=== PATIENT | male | born 1965 | race Caucasian/White ===

== ENCOUNTER 2022-09-12 10:01 | Inpatient (IN) | payer OTHER ==
[~2022-09-12] VITALS: Ht 177.8 cm; Wt 75.3 kg
[2022-09-12] MEDS ORDERED: ZOLPIDEM TARTRATE 10 MG TABLET PO PRN ×2 (13:00→15:30)
[2022-09-12] MEDS ORDERED: ACETAMINOPHEN ES 500 MG TABLET PO PRN (15:30)
[2022-09-12] MEDS ORDERED: LORAZEPAM 1 MG TABLET FOR AGITATION PO PRN (15:30)
[2022-09-12] MEDS ORDERED: IBUPROFEN 200 MG TABLET PO PRN (15:30)
[2022-09-12] MEDS ORDERED: MAGNESIUM HYDROXIDE 30 ML UDC PO PRN (15:30)
[2022-09-12] MEDS ORDERED: MAG HYDROX/AL HYDROX/SIMETH 30 ML UDC PO PRN (15:30)
[2022-09-12 16:00] VITALS: BP 124/76
--- NOTE | 2022-09-12 16:09 | NUR ---
CT/MS ORTHOTIC AIDE NOTES PATIENT IS 57 Y/O MALE ADMITTED TO UNIT @ 1415 FOR CLINICAL TRIAL WITH DIAGNOSIS OF SCHIZOPHRENIA . A/O X4. ABLE TO VERBALIZED NEEDS, DENIES PAIN AND ANY DISCOMFORTS. AMBULATORY WITH STEADY GAIT. ON ROOM AIR, TOLERATING WELL, BREATHING EVEN AND UNLABORED. V/S TAKEN, STABLE AND RECORDED. REFUSED BODY ASSESSMENT AT THIS TIME, VERBALIZED THAT HE'S VERY SLEEPY BUT HE SAID HE DOESN'T HAVE ANY SKIN BREAKDOWN. MRSA SWAB OF RIGHT NARE DONE, SENT TO LAB. SAFETY MEASURES IMPLEMENTED: BED PLACED IN LOWEST LOCKED POSITION, SR-UP X2. CALL LIGHT WITHIN REACH. WILL CONTINUE WITH PLAN OF CARE.
--- NOTE | 2022-09-12 18:45 | NUR ---
CT/MS RN CLOSING NOTES PATIENT IS IN BED, A/O X4. ABLE TO VERBALIZED NEEDS, DENIES PAIN AND ANY DISCOMFORTS, AMBULATORY WITH STEADY GAIT, ON ROOM AIR, TOLERATING WELL, BREATHING EVEN AND UNLABORED, V/S TAKEN, STABLE AND RECORDED. REFUSED BODY ASSESSMENT AT THIS TIME, VERBALIZED THAT HE'S VERY SLEEPY BUT HE SAID HE DOESN'T HAVE ANY SKIN BREAKDOWN, MRSA SWAB OF RIGHT NARES DONE, SENT TO LAB, SAFETY MEASURES IN PLACE AND MAINTAINED AT ALL TIMES, BED PLACED IN LOWEST LOCKED POSITION, SR-UP X2. CALL LIGHT WITHIN REACH. WILL CONTINUE WITH PLAN OF CARE, ALL NEEDS ATTENDED AND ANTICIPATED, WILL ENDORSE TO LOCK PLATER NURSE.
--- NOTE | 2022-09-12 19:40 | NUR ---
MSRN ASLEEP, ON STREET CLOTHES. V/S TAKEN STABLE. DINNER STILL AT BEDSIDE. RECEIVED CALL FROM BROTHER CHANDA, WILL INFORM PATIENT ONCE AWAKE TO CALL BACK. CLOSELY WATCHED.
[2022-09-12 20:00] VITALS: BP 127/70
[2022-09-12] MEDS: RISPERDONE PO SCH (22:00)
--- NOTE | 2022-09-12 22:32 | NUR ---
PETRA AWAKE AT THIS TIME, EATING LATE DINNER. PLAN OF CARE AND MEDICATION REGIMEN DISCUSSED WITH PATIENT, APPEARS TO UNDERSTAND. PERSONAL BELONGINGS TO BE CHECK AFTER HE EATS. ASKED REGARDING HIS OWN RISPERIDONE STATED HE HAVE IT AND WILL TAKE LATER. EXPLAINED NEED TO BRING BOTTLE TO PHARMACY STATED WILL TAKE OWN MED AFTER DINNER. EXPLAINED NOT ALLOWED TO KEEP OWN MED AT BEDSIDE REPLIED"AFTER DINNER". Addendum: 09/12/22 at 1276 by JOSEPHINE BORJA RN ABOVE DOCUMENTATION TIME SHOULD BE 2044.
--- NOTE | 2022-09-13 06:51 | NUR ---
MSRN NO NEEDS MADE. WENT BACK TO SLEEP
--- NOTE | 2022-09-13 07:25 | NUR ---
CT/MS CULTURE MANAGER NOTES RECEIVED PATIENT SLEEPING IN BED, A/OX4, PATIENT IS ON CLINICAL TRIAL WITH DIAGNOSIS OF SCHIZOPHRENIA, DENIES PAIN AND ANY DISCOMFORTS. AMBULATORY WITH STEADY GAIT. ON ROOM AIR, TOLERATING WELL, BREATHING EVEN AND UNLABORED. V/S STABLE AND RECORDED, NO SKIN BREAKDOWN NOTED.,SAFETY MEASURES IMPLEMENTED, BED PLACED IN LOWEST LOCKED POSITION, SR-UP X2. CALL LIGHT WITHIN REACH. WILL CONTINUE TO MONITOR PATIENT. Addendum: 09/13/22 at 1327 by ROCK DIANA NIETO RN ERROR
--- NOTE | 2022-09-13 09:48 | NUR ---
CT/MS RN OPENING NOTES RECEIVED PATIENT SLEEPING IN BED, A/OX4, PATIENT IS ON CLINICAL TRIAL WITH DIAGNOSIS OF SCHIZOPHRENIA, DENIES PAIN AND ANY DISCOMFORTS. AMBULATORY WITH STEADY GAIT. ON ROOM AIR, TOLERATING WELL, BREATHING EVEN AND UNLABORED. V/S STABLE AND RECORDED, NO SKIN BREAKDOWN NOTED.,SAFETY MEASURES IMPLEMENTED, BED PLACED IN LOWEST LOCKED POSITION, SR-UP X2. CALL LIGHT WITHIN REACH. WILL CONTINUE TO MONITOR PATIENT.
[2022-09-13] MEDS ORDERED: RISP0.2515 PO (11:26)
[2022-09-13] MEDS ORDERED: DIPH50CA38 PO (11:26)
[2022-09-13 16:00] VITALS: BP 100/76
--- NOTE | 2022-09-13 18:41 | NUR ---
CT/MS RN CLOSING NOTES PATIENT SLEEPING IN BED, A/OX4, PATIENT IS ON CLINICAL TRIAL WITH DIAGNOSIS OF SCHIZOPHRENIA, DENIES PAIN AND ANY DISCOMFORTS. AMBULATORY WITH STEADY GAIT. ON ROOM AIR, TOLERATING WELL, BREATHING EVEN AND UNLABORED. V/S STABLE AND RECORDED, NO SKIN BREAKDOWN NOTED.,SAFETY MEASURES IMPLEMENTED AND MAINTAINED AT ALL TIMES, BED PLACED IN LOWEST LOCKED POSITION, SR-UP X2. CALL LIGHT WITHIN REACH. ALL NEEDS ATTENDED AND ANTICIPATED, WILL ENDORSE TO BENEFITS SPECIALIST NURSE.
--- NOTE | 2022-09-13 19:50 | NUR ---
MS RN OPENING NOTE RECEIVED PATIENT SLEEPING IN BED. PT A/O X4, ABLE TO VERBALIZE NEEDS. PATIENT DENIES PAIN AND DISCOMFORT. AMBULATORY WITH STEADY GAIT. ON ROOM AIR, TOLERATING WELL, BREATHING EVEN AND UNLABORED. PT ON CLINICAL TRIAL. SAFETY MEASURES IMPLEMENTED, BED PLACED IN LOWEST LOCKED POSITION, SR-UP X2. CALL LIGHT WITHIN REACH. WILL CONTINUE TO MONITOR PATIENT.
[2022-09-13 20:00] VITALS: BP 118/80
[2022-09-13] MEDS: RISPERDONE PO SCH (21:39)
--- NOTE | 2022-09-14 06:40 | NUR ---
MS RN CLOSING NOTE LEFT PATIENT SLEEPING IN BED. PT A/O X4, ABLE TO VERBALIZE NEEDS. PATIENT DENIES PAIN AND DISCOMFORT. AMBULATORY WITH STEADY GAIT. ON ROOM AIR, TOLERATING WELL, BREATHING EVEN AND UNLABORED. PT ON CLINICAL TRIAL. SAFETY MEASURES IMPLEMENTED, BED PLACED IN LOWEST LOCKED POSITION, SR-UP X2. CALL LIGHT WITHIN REACH. WILL ENDORSE PATIENT TO AM SHIFT NURSE FOR MISBAH.
--- NOTE | 2022-09-14 07:10 | NUR ---
MS RN OPENING NOTES PATIENT ASLEEP IN BED BUT EASILY AROUSABLE, A/OX4, PATIENT IS ON CLINICAL TRIAL WITH DIAGNOSIS OF SCHIZOPHRENIA, DENIES PAIN AND ANY DISCOMFORTS. AMBULATORY WITH STEADY GAIT. ON ROOM AIR, TOLERATING WELL, BREATHING EVEN AND UNLABORED. ENDORSED PATIENT ON NPO SINCE 09/13/22 AT 2200. V/S STABLE AND RECORDED, NO SKIN BREAKDOWN NOTED.,SAFETY MEASURES IMPLEMENTED, BED PLACED IN LOWEST LOCKED POSITION, SR-UP X2. CALL LIGHT WITHIN REACH. WILL CONTINUE TO MONITOR PATIENT.
[2022-09-14 08:00] VITALS: BP 139/93
--- NOTE | 2022-09-14 18:45 | NUR ---
MS RN CLOSING NOTES PATIENT WENT OUT TO SHOP IN STABLE CONDITION, NO PARANOIA, NO DELUSIONS NOTED. VITAL SIGNS WITHIN NORMAL VALUES. WILL CONTINUE TO MONITOR AND WILL ENDORSE TO PM SHIFT ACCORDINGLY.
[2022-09-14 20:00] VITALS: BP 120/90
--- NOTE | 2022-09-14 21:00 | NUR ---
MS RN OPENING NOTE PATIENT IS BACK TO UNIT NOW. RECEIVED PATIENT SITTING IN BED, EATING DINNER. PT A/O X4, ABLE TO VERBALIZE NEEDS. PATIENT DENIES PAIN AND DISCOMFORT. AMBULATORY WITH STEADY GAIT. ON ROOM AIR, TOLERATING WELL, BREATHING EVEN AND UNLABORED. PT ON CLINICAL TRIAL. SAFETY MEASURES IMPLEMENTED, BED PLACED IN LOWEST LOCKED POSITION, SR-UP X2. CALL LIGHT WITHIN REACH. WILL CONTINUE TO MONITOR PATIENT.
--- NOTE | 2022-09-15 06:30 | NUR ---
MS RN CLOSING NOTE LEFT PATIENT SLEEPING IN BED. PT A/O X4, ABLE TO VERBALIZE NEEDS. PATIENT DENIES PAIN AND DISCOMFORT. AMBULATORY WITH STEADY GAIT. ON ROOM AIR, TOLERATING WELL, BREATHING EVEN AND UNLABORED. PT ON CLINICAL TRIAL. SAFETY MEASURES IMPLEMENTED, BED PLACED IN LOWEST LOCKED POSITION, SR-UP X2. CALL LIGHT WITHIN REACH. WILL ENDORSE PATIENT TO INCOMING SHIFT NURSE FOR CONTINUITY OF CARE.
--- NOTE | 2022-09-15 07:22 | NUR ---
MS RN OPENING NOTES RECEIVED PATIENT RESTING IN BED, A/OX4, PATIENT IS ON CLINICAL TRIAL WITH DIAGNOSIS OF SCHIZOPHRENIA, PATIENT VERBALIZED HE SLEPT GOOD LAST NIGHT. DENIES PAIN AND ANY DISCOMFORTS. AMBULATORY WITH STEADY GAIT. ON ROOM AIR, TOLERATING WELL, BREATHING EVEN AND UNLABORED BREATHING.SAFETY MEASURES IMPLEMENTED, BED PLACED IN LOWEST LOCKED POSITION, SR-UP X2. CALL LIGHT WITHIN REACH. WILL CONTINUE TO MONITOR PATIENT.
[2022-09-15 08:00] VITALS: BP 136/74
--- NOTE | 2022-09-15 18:23 | NUR ---
MS RN NOTE NOTED PATIENT STILL OUT OF THE ROOM, CALL PATIENT ON HIS PHONE AND HE SAID HE JUST WENT ON HIS APPOINTMENT AND IS ON HIS WAY BACK. WILL WAIT FOR PATIENT'S RETURN. PATIENT SAID HE IS WAITING FOR HIS RIDE BACK FROM APPOINTMENT.
[2022-09-15 20:00] VITALS: BP 128/76
--- NOTE | 2022-09-16 06:35 | NUR ---
RN CT CLOSING NOTES PATIENT IS IN BED RESTING, A/OX4, PATIENT IS ON CLINICAL TRIAL WITH DIAGNOSIS OF SCHIZOPHRENIA, PATIENT VERBALIZED HE SLEPT GOOD LAST NIGHT. DENIES PAIN AND ANY DISCOMFORTS. AMBULATORY WITH STEADY GAIT. ON ROOM AIR, TOLERATING WELL, BREATHING EVEN AND UNLABORED BREATHING.SAFETY MEASURES IMPLEMENTED, BED PLACED IN LOWEST LOCKED POSITION, SR-UP X2. CALL LIGHT WITHIN REACH. WILL ENDORSED TO NEXT SHIFT FOR MISBAH.
--- NOTE | 2022-09-16 07:00 | NUR ---
MS RN OPENING NOTES: RECEIVED PT IN BED, AWAKE ALERT AND ORIENTED X 4 AND ABLE TO MAKE NEEDS KNOWN. NO SOB OR CARDIAC DISTRESS NOTED, DENIES PAIN AT THIS TIME. NO IV ACCESS. NO UNUSUAL BEHAVIORAL CHANGES HAPPENED IN PREVIOUS SHIFT. SAFETY MEASURES MAINTAINED: BED LOCKED AND IN LOWEST POSITION SIDE RAILS UP X 2. CALL LIGHT IN EASY REACH AND WILL MONITOR PT ACCORDINGLY.
[2022-09-16 07:30] VITALS: BP 139/102
--- NOTE | 2022-09-16 09:46 | NUR ---
RN NOTES: RECEIEVED A CALL FROM DR GUEVARA, PATIENT WILL BE DISCHARGE TODAY, PER DR GUEVARA PT HAS UNCONTROLLED BLOOD SUGAR. NO HOME MEDS FROM DR GUEVARA, JUST FOLLOW UP WITH HIS PCP AND PERSONAL/PRIVATE PSYCHIATRIST. ALL ORDERS NOTED AND CARRIED OUT. CHARGE NURSE MITUL AND PATIENT MADE AWARE.
--- NOTE | 2022-09-16 10:00 | NUR ---
DISCHARGE NOTES: PATIENT DC HOME TODAY. ALERT AND ORIENTED X 4 AND ABLE TO MAKE NEEDS KNOWN, NO SOB OR CARDIAC DISTRESS NOTED. DISCHARGE PACKET AND INSTRUCTIONS GIVEN TO PATIENT AND VERBALIZED UNDERSTANDING. ALL BELONGINGS TAKEN WITH THE PT AND HE SIGNED. REMOVED IDENTIFICATION BAND. PT AMBULATORY AND STATED HIS FRIEND IS DOWNSTAIRS ALREADY. PT LEFT THE UNIT STABLE.
[2022-09-20] MEDS ORDERED: ZOLPIDEM TARTRATE 10 MG TABLET PO PRN (13:00)
[2022-09-20] MEDS ORDERED: LORAZEPAM 1 MG TABLET FOR AGITATION PO PRN (13:00)
[2022-09-27] MEDS ORDERED: ZOLPIDEM TARTRATE 10 MG TABLET PO PRN (13:00)
[2022-09-27] MEDS ORDERED: LORAZEPAM 1 MG TABLET FOR AGITATION PO PRN (13:00)
[2022-10-04] MEDS ORDERED: ZOLPIDEM TARTRATE 10 MG TABLET PO PRN (13:00)
[2022-10-04] MEDS ORDERED: LORAZEPAM 1 MG TABLET FOR AGITATION PO PRN (13:00)
[2022-10-11] MEDS ORDERED: ZOLPIDEM TARTRATE 10 MG TABLET PO PRN (13:00)
[2022-10-11] MEDS ORDERED: LORAZEPAM 1 MG TABLET FOR AGITATION PO PRN (13:00)
[2022-10-18] MEDS ORDERED: ZOLPIDEM TARTRATE 10 MG TABLET PO PRN (13:00)
[2022-10-18] MEDS ORDERED: LORAZEPAM 1 MG TABLET FOR AGITATION PO PRN (13:00)
[2022-10-25] MEDS ORDERED: ZOLPIDEM TARTRATE 10 MG TABLET PO PRN (13:00)
[2022-10-25] MEDS ORDERED: LORAZEPAM 1 MG TABLET FOR AGITATION PO PRN (13:00)
[2022-11-01] MEDS ORDERED: LORAZEPAM 1 MG TABLET FOR AGITATION PO PRN (13:00)
[2022-11-01] MEDS ORDERED: ZOLPIDEM TARTRATE 10 MG TABLET PO PRN (13:00)
== END 2022-09-16 10:00 | disposition home or self-care (01) | DRG 951 ==
LOC: MED 15:04
PROVIDERS: ADMIT Psychiatry & Neurology Psychiatry; ATTEND Psychiatry & Neurology Psychiatry
DX: Z00.6 Encounter for examination for normal comparison and control in clinical research program (principal); F20.0 Paranoid schizophrenia; Z79.899 Other long term (current) drug therapy
CPT/HCPCS: 87081-TC; G0378